=== PATIENT | female | born 1990 | race African-American/Black ===

== ENCOUNTER 2017-07-08 16:57 | Emergency (ER) | payer MEDICAID, OTHER ==
[~2017-07-08] VITALS: Ht 175.3 cm; Wt 62.4 kg
[2017-07-08 16:59] VITALS: BP 142/84
== END 2017-07-08 17:42 | disposition home or self-care (01) ==
LOC: ED 17:35
DX: H61.22 Impacted cerumen, left ear (principal); H61.21 Impacted cerumen, right ear
CPT/HCPCS: 69209

== ENCOUNTER 2017-09-25 22:37 | Emergency (ER) | payer MEDICAID, OTHER ==
[~2017-09-25] VITALS: Ht 175.3 cm; Wt 67.4 kg
[2017-09-25 22:44] VITALS: BP 123/77
== END 2017-09-25 23:19 | disposition home or self-care (01) ==
LOC: ED 23:15
DX: S03.2XXA Dislocation of tooth, initial encounter (principal); X58.XXXA Exposure to other specified factors, initial encounter; Y93.89 Activity, other specified; Y99.8 Other external cause status; Y92.89 Other specified places as the place of occurrence of the external cause
CPT/HCPCS: 99283